=== PATIENT | female | born 1950 | race Caucasian/White ===

== ENCOUNTER 2024-12-18 14:07 | Inpatient (IN) | payer MEDICARE ==
[~2024-12-18] VITALS: Ht 162.6 cm; Wt 77.2 kg
--- NOTE | 2024-12-18 14:32 | ERN ---
ED Note History of Present Illness Stated Complaint: SHORTNESS OF BREATH Chief Complaint: Shortness of Breath Time Seen by MD: 14:21 Dictation: PATIENT IS A 74-YEAR-OLD FEMALE COMING IN VIA EMS WITH COMPLAINTS OF SHORTNESS A BREATH WITH GENERALIZED BODY ACHES AND WEAKNESS FOR THE LAST TWO WEEKS. SHE STATES [id number] DAYS AGO SHE WAS FEELING FLU-LIKE SYMPTOMS AND DIAGNOSED HERSELF WITH COVID-19 WITH A HOME TEST. SHE WENT TO A LOCAL URGENT CARE AND WAS PRESCRIBED PAXLOVID WITHOUT ANY RESPIRATORY SUPPORT AND WENT HOME. SHE STATES SHE TOOK THE MEDICATIONS DIRECTED AND WAS FEELING BETTER UNTIL THE 1ST COLD FRONT, THEN SHE STARTED GETTING SEVERE SHORTNESS A BREATH GENERALIZED BODY WEAKNESS GETTING PROGRESSIVELY WORSE. SHE DENIES ANY CHRONIC COMORBIDITIES NO HISTORY OF TOBACCO ABUSE COPD EMPHYSEMA OR CHEST PAIN. Allergies: Coded Allergies: Penicillins (Unverified Allergy, Unknown, 12/18/24) Past Medical History Past Medical History: High Cholesterol, Hypertension Additional Past Medical Hx: ANXIETY Surgical History: Appendectomy, Hysterectomy Surgical History Other: BACK SURG History: Not Applicable RN Note Reviewed/Agreed w/PFSH: Yes Review of System Dictation CONSTITUTIONAL: NEGATIVE EXCEPT FOR HPI GB W HEAD/FACE: NEGATIVE EXCEPT FOR HPI EENT: NEGATIVE EXCEPT FOR HPI RESPIRATORY: NEGATIVE EXCEPT FOR HPI SOB GASTROINTESTINAL/ABDOMINAL: NEGATIVE EXCEPT FOR HPI GENITOURINARY: NEGATIVE EXCEPT FOR HPI MUSCULOSKELETAL: NEGATIVE EXCEPT FOR HPI INTEGUMENTARY: NEGATIVE EXCEPT FOR HPI NEUROLOGICAL/PSYCH: NEGATIVE EXCEPT FOR HPI HEMATOLOGIC/LYMPHATIC: NEGATIVE EXCEPT FOR HPI ALL SYSTEMS NEGATIVE, EXCEPT NOTED ABOVE. 13 POINT REVIEW OF SYSTEMS ASSESSED AND ALL NEGATIVE EXCEPT FOR ABOVE. Initial Vital Sign VS Vital Signs Date Time Temp Pulse Resp B/P (MAP) Pulse Ox O2 Delivery O2 Flow Rate FiO2 12/18/24 14:15 98.6 96 22 104/62 95 Nasal Cannula 2.0 12/18/24 15:15 21 Physical Exam Dictation VITAL SIGNS REVIEWED GENERAL APPEARANCE: ALERT, ORIENTED X 3, MODERATE ACUTE DISTRESS, WELL DEVELOPED, NOURISHED. PATIENT IS SPEAKING IN 3-4 WORD SENTENCES HEAD AND FACE: NON-TRAUMATIC. EYES: PERRL, PINK CONJUNCTIVAS, EYELID NO TRAUMA, ANTERIOR CHAMBER WITH ARCUS SENILIS. EARS: PINNAS INTACT AND NO SIGNS OF TRAUMA OR ERYTHEMA EAR CANALS CLEAR AND NO DISCHARGE TM NO ERYTHEMA NOSE: NO DISCHARGE, NO BLEEDING. OROPHARYNX: MOUTH NORMAL, TONGUE PINK, PHARYNX CLEAR,NO ERYTHEMA, TONSILS NO EXUDATES, NO ABSCESSES NOTED, MUCOUS MEMBRANE MOIST NECK: SUPPLE, NON-TENDER, NO THYROMEGALY, NO MASSES, NO JVD, NO BRUITS BREAST:DEFERRED CHEST:NO TENDERNESS, NO CREPITUS, NO PARADOXICAL MOVEMENT, NO RETRACTIONS LUNGS:CLEAR, WELL-VENTILATED, SYMMETRIC, NO RALES, NO WHEEZING, NO RHONCHI, NO STRIDOR, PATIENT MILDLY TACHYPNEIC AND SPEAKING 3-4 WORD SENTENCES ONLY HEART: REGULAR RATE, REGULAR RHYTHM, NO MURMUR, NO GALLOPS VASCULAR: NO PERIPHERAL EDEMA, ABDOMEN: SOFT, POSITIVE BOWEL SOUNDS, NONDISTENDED, NO GUARDING, NONTENDER, NO REBOUND, NO MASSES NO HEPATOMEGALY, NO SPLENOMEGALY, NO CARCAMO'S SIGN, NO HERNIAS. RECTAL: DEFERRED GENITAL: DEFERRED NEUROLOGICAL: NORMAL SPEECH, MOTOR FUNCTION INTACT, SENSORY FUNCTION INTACT MUSCULOSKELETAL: NECK NONTENDER, FULL RANGE OF MOTION, BACK NONTENDER, FULL RANGE OF MOTION, EXTREMITIES: NONTENDER, FULL RANGE OF MOTION SKIN: COLOR PINK, DRY, NO TURGOR, NO RASH, NO LACERATIONS, NO ABRASIONS, NO CONTUSIONS. LYMPHATIC: DEFERRED Results (Laboratory/Radiology) Laboratory/Radiology Laboratory Tests Test 12/18/24 15:44 12/18/24 16:46 White Blood Count 5.7 K/uL (4.8-10.8) Red Blood Count 3.48 MIL/uL (4.00-5.50) L Hemoglobin 10.6 g/dL (12.0-16.0) L Hematocrit 32.3 % (36-48) L Mean Corpuscular Volume 92.8 fL (79-99) Mean Corpuscular Hemoglobin 30.5 pg (27.0-33.0) Mean Corpuscular Hemoglobin Concent 32.8 g/dL (32.0-36.0) Red Cell Distribution Width 12.9 % (11.0-15.5) Platelet Count 189 K/uL (130-400) Mean Platelet Volume 11.5 fL (7.5-10.5) H Immature Granulocyte % (Auto) 1.2 % (0-1) H Neutrophils (%) (Auto) 55.2 % (40.0-77.0) Lymphocytes (%) (Auto) 29.9 % (21.0-51.0) Monocytes (%) (Auto) 12.2 % (3.0-13.0) Eosinophils (%) (Auto) 1.2 % (0.0-8.0) Basophils (%) (Auto) 0.3 % (0.0-5.0) Neutrophils # (Auto) 3.2 K/uL (1.8-7.7) Lymphocytes # (Auto) 1.7 K/uL (1.0-4.8) Monocytes # (Auto) 0.7 K/uL (0.1-1.0) Eosinophils # (Auto) 0.07 K/uL (0.00-0.70) Basophils # (Auto) 0.02 K/uL (0.00-0.20) Absolute Immature Granulocyte (auto 0.07 K/uL (0-1) Nucleated Red Blood Cells 0.0 % (0.0-0.19) Sodium Level 138 mmol/L (136-145) Potassium Level 3.0 mmol/L (3.5-5.1) *L Chloride Level 102 mmol/L (101-111) Carbon Dioxide Level 26 mmol/L (21-32) Blood Urea Nitrogen 22 mg/dL (7-18) H Creatinine 0.9 mg/dL (0.5-1.0) Glomerular Filtration Rate Calc 67 mL/min (>90) Random Glucose 119 mg/dL (70-105) H Lactic Acid Level 2.7 mmol/L (0.8-2.5) H Total Calcium 8.6 mg/dL (8.5-10.1) Troponin I High Sensitivity 9 ng/L (4-50) Urine Color YELLOW (YELLOW) Urine Appearance CLOUDY (CLEAR) H Urine pH 5.5 (5.0-8.0) Urine Specific [place] 1.021 (1.001-1.031) Urine Protein 30 mg/dL (NEGATIVE) H Urine Glucose (UA) NEGATIVE mg/dL (NEGATIVE) Urine Ketones NEGATIVE mg/dL (NEGATIVE) Urine Occult Blood NEGATIVE (NEGATIVE) Urine Nitrate 1+ (NEGATIVE) H Urine Bilirubin NEGATIVE mg/dL (NEGATIVE) Urine Urobilinogen 0.2 mg/dL (0.2-1.0) Urine Leukocyte Esterase 25 Coco/uL (NEGATIVE) H Urine RBC 0-1 /HPF (0-1) Urine WBC 6-10 /HPF (0-1) H Urine Squamous Epithelial Cells FEW /HPF (0-2) Urine Bacteria MOD /HPF (None Seen) Urine Hyaline Casts 6-10 /LPF (0-1 /LPF) H PORTABLE CHEST RADIOGRAPH INDICATION: SOB/COUGH TWO WEEKS COMPARISON: None FINDINGS: Heart size is normal. Mild calcific plaque is present along the aortic arch steven. The pulmonary vascularity and dagmar appear normal. No abnormal pulmonary parenchymal opacity or consolidation identified. No significant pleural effusion noted. No pneumothorax detected. IMPRESSION: No radiographic evidence for any acute cardiopulmonary process. 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POKE WITH HER AND HER AT BEDSIDE AND SHE SAID SHE HAD A LEFT BUNDLE BRANCH BLOCK THAT WAS DIAGNOSED TWO YEARS AGO IN [place]. SHE STATES SHE HAD A THOROUGH WORKUP BY A [employer] AND HE WAS UNABLE TO FIND ANY CARDIAC DISEASE. Sinus rhythm Ventricular premature complex Left bundle branch block Please click the below link to view image of tracing. ED Course ED Course Orders Procedure Category Date Status Time Cbc With Differential LAB 12/18/24 Complete 14:28 Blood Cult KIM 12/18/24 In Process 14:28 Urinalysis Profile LAB 12/18/24 Complete 14:28 Troponin I High LAB 12/18/24 Complete Sensitivity 14:28 Lactic Acid LAB 12/18/24 Complete 14:28 Basic Metabolic Panel LAB 12/18/24 Complete 14:28 Chest 1vw RAD 12/18/24 Resulted 14:28 Oxygen By Nc/Pulse Ox CPOE 12/18/24 Transmitted 14:28 Methylprednisolone PHA 12/18/24 Complete Succ 125mg (Solu-Medr 14:30 Albuterol 0.083% PHA 12/18/24 Complete 2.5mg/3ml (Proventil 14:28 12 Lead Ekg Tracing- EKG 12/18/24 Complete Technical 14:28 0.9%Nacl 1000ml (Ns PHA 12/18/24 Complete 1000ml) 16:00 Ceftriaxone 2gm Vial PHA 12/18/24 Complete (Rocephin 2gm Inj) 16:00 Potassium Bicarb/Cit PHA 12/18/24 Complete Ac 25meq (K-Lyte Ta 16:30 Culture Urine KIM 12/18/24 In Process 16:57 Azithromycin 500mg+Ns PHA 12/18/24 In Process 250ml (Azithromyci 17:46 Admit Orders ADM 12/18/24 Transmitted 18:25 Current Medications Medications (Trade) Dose Ordered Sig/Keyla Route PRN Reason Start Time Stop Time Status Last Admin Dose Admin Albuterol Sulfate (Proventil 0.083% 2.5mg/3ml) 5 mg ONCE STAT IH 12/18/24 14:28 12/18/24 14:31 DC 12/18/24 15:35 Azithromycin 250 ml @ 250 mls/hr ONCE STAT IVPB 12/18/24 17:46 12/18/24 18:45 Ceftriaxone Sodium (Rocephin 2gm Inj) 2 gm ONCE ONCE IVPB 12/18/24 16:00 12/18/24 16:29 DC 12/18/24 16:31 Methylprednisolone Sodium Succinate (Solu-medROL 125MG) 125 mg ONCE ONCE IVP 12/18/24 14:30 12/18/24 14:31 DC 12/18/24 15:35 Potassium Bicarbonate (K-Lyte Tablet Eff 25 Meq Tablet.eff) 50 meq ONCE ONCE PO 12/18/24 16:30 12/18/24 16:31 DC 12/18/24 16:31 Sodium Chloride 1,000 ml @ 0 mls/hr ONCE ONCE IV 12/18/24 16:00 12/18/24 16:23 DC 12/18/24 16:31 Vital Signs Date Time Temp Pulse Resp B/P (MAP) Pulse Ox O2 Delivery O2 Flow Rate FiO2 12/18/24 16:41 98.2 76 24 115/48 99 Nasal Cannula* 2 28 12/18/24 15:15 98.6 96 22 164/62 95 Room Air* 0 21 12/18/24 15:03 73 28 12/18/24 14:15 98.6 96 22 104/62 95 Nasal Cannula 2.0 SEVENTEEN 50/PATIENT CONTINUES TO REQUIRE O2 DESPITE TREATMENTS WITH ALBUTEROL SOLU-MEDROL, ANTIBIOTICS. SHE WENT TO THE RESTROOM WITHOUT O2 10 MINUTES PRIOR TO ME APPROACHING THE BED AND DESATURATED DOWN IN THE HIGH 80S WITHOUT OXYGEN. PATIENT WE WILL BE ADMITTED TO THE HOSPITAL FOR POST COVID SYNDROME DYSPNEA AND OXYGEN DEPENDENT. SHE AGREES TO BE ADMITTED Eighteen 30 spoke with Antoine AGUILAR and reviewed chest x-ray EKG labs and interventions for hypokalemia and dyspnea. He agreed to admit patient. HEART Score Response (Comments) Value History: Low suspicion (0) 0 Age: > 65yrs (+2) 2 Risk Factors: 1-2 risk factors (+1) 1 Initial Troponin: Normal limit (0) 0 Total 3 Medical Decision Making MDM MDM: DIFFERENTIAL DIAGNOSIS: ACS/AMI/ELECTROLYTE IMBALANCE/DEHYDRATION/PNEUMONIA/BRONCHITIS/POST COVID SYNDROME/HYPOXEMIA RATIONALE: TESTS CONSIDERED AND ORDERED SECONDARY TO SHARED DECISION MAKING INCLUDE: LABS, ECG AND RADIOLOGY PREVIOUS OUTSIDE RECORDS REVIEWED: OLD ER VISITS. RISK OF COMPLICATION AND/OR MORBIDITY OR MORTALITY OF PATIENT MANAGEMENT: MILD MEDICATIONS-PER MEDICATION RECONCILIATION NEED FOR HOSPITALIZATION: PATIENT DOES MEET CRITERIA FOR HOSPITALIZATION. RESPIRATORY SUPPORT NEED FOR EMERGENCY MAJOR/MINOR SURGERY: NO THERE ARE NO SOCIAL CONCERNS WITH THIS PATIENT. PRESCRIPTION DRUG MANAGEMENT PRESCRIPTIONS WILL INCLUDE SYMPTOMATIC CARE PATIENT'S PRIOR EXTERNAL MEDICAL RECORDS FROM OTHER ER VISITS WERE REVIEWED BY ME INDICATED. PRIOR TESTING AND RESULTS FROM PREVIOUS VISITS WERE REVIEWED. PRIOR TESTS WERE TAKEN INTO ACCOUNT WITH MEDICAL DECISION MAKING AND RESOURCE UTILIZATION, INDEPENDENT HISTORIAN/HISTORIANS WERE USED TO OBTAIN COMPLETE MEDICAL HISTORY. I INDEPENDENTLY INTERPRETED THE TEST THAT WERE PERFORMED, RESULTS WERE REVIEWED BY ME AND CONSIDERED FINDINGS ON RADIOLOGY IF ORDERED. MEDICAL MANAGEMENT AND EXAMINATION INTERPRETATION DISCUSSIONS WERE HAD BY ME WITH OTHER QUALIFIED HEALTHCARE PROFESSIONALS INDICATED FOR THE PATIENT'S CARE. DX & DISP Disposition: Inpatient Decision to Admit Time: 17:50 Departure Impression: Primary Impression: Dyspnea on exertion Additional Impressions: Hypoxemia requiring supplemental oxygen, Hypokalemia, Hyperglycemia, Lactic acidosis, History of COVID-19 Condition: Stable Time of Disposition: 17:50 I have reviewed the case, and I agree with, Diagnosis and Plan BREANA MCCONNELL NP Dec 18, 2024 14:32
[2024-12-18 15:03] VITALS: PULSE 73; RESP 28
--- NOTE | 2024-12-18 15:06 | EKG ---
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
[2024-12-18] MEDS: ALBUTEROL 0.083% 2.5 MG/3 ML INH IH STA (15:35)
[2024-12-18] MEDS: Solu-medROL 125MG VIAL IVP ONE (15:35)
[2024-12-18 15:51] LABS: BASOPHILS # (AUTO) 0.02 K/uL (0.00-0.20); BASOPHILS % (AUTO) 0.3 % (0.0-5.0); EOSINOPHILS # (AUTO) 0.07 K/uL (0.00-0.70); EOSINOPHILS % (AUTO) 1.2 % (0.0-8.0); HEMATOCRIT 32.3 % (36-48); IMMATURE GRANULOCYTE ABSOLUTE 0.07 K/uL (0-1); LYMPHOCYTES # (AUTO) 1.7 K/uL (1.0-4.8); LYMPHOCYTES % (AUTO) 29.9 % (21.0-51.0); MEAN CORPUSCULAR HEMOGLOBIN 30.5 pg (27.0-33.0); MEAN CORPUSCULAR HGB CONC 32.8 g/dL (32.0-36.0); MEAN CORPUSCULAR VOLUME 92.8 fL (79-99); MONOCYTES # (AUTO) 0.7 K/uL (0.1-1.0); MONOCYTES % (AUTO) 12.2 % (3.0-13.0); NEUTROPHILS # (AUTO) 3.2 K/uL (1.8-7.7); NEUTROPHILS % (AUTO) 55.2 % (40.0-77.0); PLATELET COUNT (AUTO) 189 K/uL (130-400); RED BLOOD CELL COUNT(AUTO) 3.48 MIL/uL (4.00-5.50); RED CELL DISTRIBUTION WIDTH 12.9 % (11.0-15.5); WHITE BLOOD COUNT (AUTO) 5.7 K/uL (4.8-10.8)
[2024-12-18 16:12] LABS: CREATININE 0.9 mg/dL (0.5-1.0)
--- NOTE | 2024-12-18 16:19 | HMCIMG ---
PORTABLE CHEST RADIOGRAPH INDICATION: SOB/COUGH TWO WEEKS COMPARISON: None FINDINGS: Heart size is normal. Mild calcific plaque is present along the aortic arch steven. The pulmonary vascularity and dagmar appear normal. No abnormal pulmonary parenchymal opacity or consolidation identified. No significant pleural effusion noted. No pneumothorax detected. IMPRESSION: No radiographic evidence for any acute cardiopulmonary process.
--- NOTE | 2024-12-18 16:22 | NUR ---
MOVED TO ER 12
[2024-12-18] MEDS: PoTASSium BIcarbonate/CIT AC 25 MEQ TABLET.EFF PO ONE (16:31)
[2024-12-18] MEDS: CEFTRIAXONE 2GM VIAL IVPB ONE (16:31)
[2024-12-18] MEDS: 0.9%NACL 1000ML 1,000 ML IV ONE (16:31)
[2024-12-18 16:55] LABS: APPEARANCE,URINE CLOUDY (CLEAR); BILIRUBIN,URINE NEGATIVE (NEGATIVE); COLOR,URINE YELLOW (YELLOW); GLUCOSE, URINE (UA) NEGATIVE (NEGATIVE); KETONES,URINE NEGATIVE (NEGATIVE); LEUKOCYTE ESTERASE ,URINE 25 Leu/uL (NEGATIVE); NITRATE,URINE 1+ (NEGATIVE); OCCULT BLOOD,URINE NEGATIVE (NEGATIVE); PH,URINE 5.5 (5.0-8.0); PROTEIN,URINE 30 mg/dL (NEGATIVE); UROBILINOGEN,URINE 0.2 mg/dL (0.2-1.0)
[2024-12-18 16:57] LABS: ADD UA MICROSCOPIC YES
[2024-12-18 16:59] LABS: BACTERIA,URINE MOD /HPF (None Seen); MUCUS,URINE FEW LPF (None Seen); RBC,URINE 0-1 /HPF (0-1); SQUAMOUS EPITHELIAL CELL,UR FEW /HPF (0-2)
--- NOTE | 2024-12-18 18:26 | HP ---
History of Present Illness Reason for Visit: sob History of Present Illness Ms Claudio is a 74-year-old female that was seen and examined today on 12/18/2024. Patient is a good historian and personal health. Patient states that she came to the emergency department with a chief complaint of shortness of breath. Onset was one week ago. Location is to lungs. Duration is on and off. Character is described as, difficulty catching breath. There was no alleviating factors. Symptoms are aggravated with physical activity. Patient reports associated cough. Patient was diagnosed with COVID one weeks ago and took Paxlovid. Today in the emergency department potassium 3.0, lactic acid 2.7, urinalysis positive for leukocyte esterase and WBCs 6-10 per high-powered microscopy field, additionally heart rate 96 respirations 22, combine patient met clinical criteria for sepsis. For this reason emergency room physician recommended admission. Past Medical History ADDITIONAL PAST MEDICAL HISTORY: [Hypertension, hyperlipidemia, anxiety] SOCIAL HISTORY: [Patient quit smoking 15 years ago. Previously patient has smoked 1/2 packs of cigarettes daily. Patient denies alcohol use. Patient denies drug use. Patient lives with the Fabricio Claudio. Patient is typically independent of her ADLs. Patient denies difficulty paying her bills. Patient has good access to health care through her insurance. 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 Dyspnea, Edema, Lt Headedness, Other Gastrointestinal: No: Nausea, Vomiting, Abdominal Pain, Diarrhea, Constipation, Melena, Hematochezia, Other Genitourinary: No Dysuria, No Frequency, No Incontinence, No Hematuria, No Retention, No Other Musculoskeletal: No: other, neck pain, shoulder pain, arm pain, back pain, hand pain, leg pain, foot pain Skin: No Urticaria, No Rash, No Other Neurological: No: Weakness, Numbness, Incoordination, Change in speech, Confusion, Seizures, Other Allergies: Coded Allergies: Penicillins (Unverified Allergy, Unknown, 12/18/24) Scheduled Escitalopram Oxalate (Escitalopram Oxalate), 1 TAB PO DAILY, (Reported) Losartan Potassium (Losartan Potassium), 1 TAB PO HS, (Reported) Multivit-Min/Iron/FA/Vit K/Lut (Centrum Silver Women Tablet), 1 TAB PO DAILY, (Reported) Simvastatin (Simvastatin), 1 TAB PO HS, (Reported) [vitamin d3], 1 CAP PO DAILY, (Reported) Exam Vital Signs Vital Signs Date Time Temp Pulse Resp B/P (MAP) Pulse Ox O2 Delivery O2 Flow Rate FiO2 12/18/24 16:41 98.2 76 24 115/48 99 Nasal Cannula* 2 28 General Appearance: Alert, Oriented X3, Cooperative, mild distress HEENT: Atraumatic, EOMI Respiratory: Clear to auscultation, Normal air movement, NL respiratory effort Cardiovascular: Regular rate, Regular rhythm, Normal S1, Normal S2 Abdominal: Normal bowel sounds, Soft, No tenderness Extremities: No edema Skin: No significant lesion Neuro: Normal speech, Strength at 5/5 X4 ext, Cranial nerves 3-12 NL Psych/Mental Status: Mental status NL, Mood NL, Thoughts/Content NL Assessment/Plan ASSESSMENT: [ Sepsis, POA Urinary tract infection, POA Hypokalemia, POA Shortness of breath, POA Hypertension Hyperlipidemia] PLAN: [ Admit patient to medical floor as inpatient status. Place patient on telemetry monitoring. Fluid resuscitation with lactated Ringer's 30 mL/kg Empiric antibiotic therapy with Levaquin 500 mg IV daily. Check procalcitonin, follow up with the results. Repeat lactic acid in a.m.. Check blood culture, follow up with the results. Check urine culture, follow up with the results. Replace potassium per hospital protocol. DuoNebs every 6 hours. Patient received Solu-Medrol 125 mg IV times 1. Continue Solu-Medrol at 40 mg IV every 8 hours. As needed analgesia with morphine. Consider resuming home medications once they are reconciled. For now, Hydralazine 10 mg IV every 4 hours for systolic blood pressure greater than 160 mmHg GI prophylaxis, famotidine 20 mg by mouth once daily. DVT prophylaxis, Lovenox. ADVANCED CARE PLANNING 1. Which of the following were discussed? Hospice Care - Yes Therapeutic options - Yes Advance Directives - Yes-patient states he does not have any advance directives in place at this time, however her can make decisions for her if she becomes unable. Other discussions - patient wishes to remain a full code at this time 2. Discussed with who? Patient 3. Voluntary nature of this service was explained to the patient? Yes 4. Amount of time spent - __ 16 minutes 5. Reviewed by Physician? (if this service was performed by NPP) Yes This document was generated in part using voice recognition software, occasional wrong word or sound alike substitutions may have occurred due to the inherent limitations of voice recognition software. Read the chart carefully and recognize using context, where the substitutions have occurred. Although every effort was made to edit the content, live in housekeeper and typing errors may occur ATTESTATION BY PHYSICIAN I have seen and examined the patient. I reviewed the documentation, medical decision making, and treatment plan as noted by the mid-level provider above. I agree with the findings and plan of care. [facility] Dec 18, 2024 18:26
[2024-12-18] MEDS: AZITHROMYCIN 500MG+NS 250ML 250 ML IVPB STA (18:39)
[2024-12-18] MEDS ORDERED: PoTASSium chl 10% ELIXIR 20MEQ 20 MEQ/15 ML UDCUP PO PRN (19:30)
[2024-12-18] MEDS ORDERED: morPHINE 4 MG SYG IVP PRN (19:30)
[2024-12-18] MEDS ORDERED: ondanSETRON 4MG INJ IV PRN (19:30)
[2024-12-18] MEDS ORDERED: hydrALAZine 20MG/ML VIAL IV PRN (19:30)
[2024-12-18] MEDS ORDERED: PoTASSium chloRIDE 20MEQ/100ML 100 ML IV PRN (19:30)
[2024-12-18] MEDS: LACTATED RINGERS 1000ML 1,641 ML IV ONE (20:07)
[2024-12-18 20:56] LABS: CREATININE 0.7 mg/dL (0.5-1.0); POTASSIUM 3.7 mmol/L (3.5-5.1)
[2024-12-18 21:50] VITALS: O2SAT 98
--- NOTE | 2024-12-18 21:50 | NUR ---
arrival patient arrived to room 428 at 2150. plan of care discussed with her and she verbalized understanding. patient calls for assistance to use the bedside commode. she has no wounds. home medications were entered. she has no pain. she has shortness of breath and weakness when she is ambulatory. she is on 2 liters of oxygen via nasal cannula. call light within reach, bed alarm on, 2 side rails up. will continue to monitor patient.
[2024-12-18 21:55] VITALS: BP 137/76; PULSE 67; RESP 20; TEMP 98
[2024-12-18 21:59] LABS: RAPID GROUP A STREP negative (NEGATIVE); SARS-CoV-2, RNA, NAAT NEGATIVE SARS CoV-2 (NEGATIVE)
[2024-12-18 22:09] LABS: INFLUENZA TYPE A Negative For Type A (NEGATIVE); INFLUENZA TYPE B Negative For Type B (NEGATIVE)
[2024-12-18] MEDS ORDERED: MULT-1250 PO (22:09)
[2024-12-18] MEDS ORDERED: vitamin d3 PO (22:09)
[2024-12-18] MEDS ORDERED: LOSA100T59 PO (22:09)
[2024-12-18] MEDS ORDERED: ESCI20TA38 PO (22:09)
[2024-12-18] MEDS ORDERED: SIMV-46 PO (22:09)
[2024-12-18] MEDS: Solu-medROL 40MG VIAL IVP SCH (22:29)
[2024-12-18] MEDS: PoTASSium chloRIDE 20MEQ ER 20 MEQ ERTAB PO PRN (22:29)
[2024-12-18] MEDS: Solu-medROL 40MG VIAL ONE (22:29)
[2024-12-19] VITALS (16 sets, daily range): BP systolic 115–155; BP diastolic 53–78; PULSE 45–75; RESP 18–52; TEMP 97.6–98.3; O2SAT 97
[2024-12-19] MEDS: IpraTROPium/alBUTERol SULFATE 3 ML SOLUTION IH SCH (01:11)
[2024-12-19 03:49] LABS: BASOPHILS # (AUTO) 0.01 K/uL (0.00-0.20); BASOPHILS % (AUTO) 0.2 % (0.0-5.0); IMMATURE GRANULOCYTE ABSOLUTE 0.07 K/uL (0-1); LYMPHOCYTES # (AUTO) 0.7 K/uL (1.0-4.8); LYMPHOCYTES % (AUTO) 13.8 % (21.0-51.0); MEAN CORPUSCULAR HEMOGLOBIN 30.2 pg (27.0-33.0); MEAN CORPUSCULAR HGB CONC 32.7 g/dL (32.0-36.0); MEAN CORPUSCULAR VOLUME 92.3 fL (79-99); MONOCYTES # (AUTO) 0.1 K/uL (0.1-1.0); MONOCYTES % (AUTO) 2.1 % (3.0-13.0); NEUTROPHILS # (AUTO) 4.2 K/uL (1.8-7.7); NEUTROPHILS % (AUTO) 82.5 % (40.0-77.0); PLATELET COUNT (AUTO) 175 K/uL (130-400); RED BLOOD CELL COUNT(AUTO) 3.25 MIL/uL (4.00-5.50); RED CELL DISTRIBUTION WIDTH 12.8 % (11.0-15.5); WHITE BLOOD COUNT (AUTO) 5.1 K/uL (4.8-10.8)
[2024-12-19 04:21] LABS: CREATININE 0.7 mg/dL (0.5-1.0); PHOSPHORUS 3.3 mg/dL (2.5-4.9); POTASSIUM 4.2 mmol/L (3.5-5.1)
[2024-12-19] MEDS: acetaMINOPHEN 325 MG TAB PO PRN (04:39)
[2024-12-19] MEDS: FAMOTIDINE 20MG TAB PO SCH (08:14)
[2024-12-19] MEDS: ENOXAPARIN SODIUM 40 MG/0.4 ML SYRINGE SQ SCH (08:15)
[2024-12-19] MEDS: 0.9%NACL 1000ML 1,000 ML IV SCH (11:31)
[2024-12-19] MEDS ORDERED: IOHEXOL 350 MG/ML 100ML INFUS..BTL IV ONE (16:49)
--- NOTE | 2024-12-19 17:28 | HMCIMG ---
CT CHEST W/CONTRAST HISTORY: Acute respiratory failure COMPARISON: None TECHNIQUE: Multiple sequential axial images of the chest were obtained from the thoracic inlet through upper abdomen. Patient was not given contrast through intravenous route. FINDINGS: There are right lower lobe pulmonary infiltrates. Mild interstitial fibrotic changes are seen. No pleural effusion or pericardial effusion is seen. There is no evidence of pneumothorax. There are normal size mediastinal and hilar lymph nodes. The heart is not enlarged. Degenerative changes of the thoracolumbar spine are present. There is no evidence of adrenal nodule. IMPRESSION: 1. Right lower lobe pulmonary infiltrates. Mild interstitial fibrotic changes. CT was performed with one or more following dose reduction techniques: automated exposure control, adjustment of the mA and kv according to patient's size, or use of a iterative reconstruction technique.
--- NOTE | 2024-12-19 17:56 | PN ---
[facility] PROGRESS NOTE Date of Service: Dec 19, 2024 Time of Service: 11:00 SUBJECTIVE: The patient is a 74-year-old female with a medical history of hypertension, hyperlipidemia, and anxiety disorder presented to the emergency department with chief complaints of shortness of breath that had been ongoing for one week. The patient's had sustained femur and hand fractures one month prior, and she expressed concerns about being exposed to a sick environment during his rehabilitation visits. Additionally, one week ago, while taking a shower, she experienced a sudden onset of shortness of breath. She performed a home COVID test, which returned positive, and subsequently completed a course of Paxlovid. However, her shortness of breath did not improve, leading her to seek care in the emergency department. Upon presentation, her heart rate was 96 beats per minute, and her respiratory rate was 22 breaths per minute, meeting the SIRS criteria. She was also noted to be in respiratory distress and was initiated on supplemental oxygen via nasal cannula, along with IV steroids and inhalers. Laboratory results showed potassium levels at 3, lactic acid at 2.7, and urinalysis revealed cloudy appearance, 1+ nitrate, small leukocyte esterase, and hyaline casts. She met the criteria for sepsis and was admitted for the management of sepsis secondary to a urinary tract infection and acute respiratory failure. 12/19/2024: The patient was examined at bedside and appears to be in some distress. She is currently on 2.0 L of nasal cannula and has a pulse rate in the late 50s; otherwise, she is hemodynamically stable. She is complaining of a cough that is brownish in color as well as post-nasal drip. She reports an improvement in symptoms with the use of nebulizers and supplemental oxygen. She denies experiencing any chest pain, headaches, body aches, fever, or chills. Repeat labs indicated that potassium levels have improved, and lactic acid levels decreased from 2.7 to 1.3. The urine culture showed >100,000 CFU and the presence of gram-negative rods. We will continue with breathing support, intravenous steroids, nebulizers, and Levofloxacin. We will also initiate IV fluids. Further assessment and a detailed plan are discussed below. REVIEW OF SYSTEMS CONSTITUTIONAL: Denies fevers, chills, or night sweats. No unintentional weight loss reported. NEUROLOGICAL: Denies headache, amaurosis fugax, motor weakness, sensory deficit, vertigo/spinning sensation, gait abnormalities, or tremors. ENT: No hearing loss, otalgia, otorrhea, rhinitis, rhinorrhea, hoarseness, or sore throat. CARDIOVASCULAR: Denies any exertional angina, dyspnea on exertion, orthopnea, paroxysmal nocturnal dyspnea, palpitations, life-threatening arrhythmias, claudication. PULMONARY: Denies any shortness of breath, c/o brownish cough, no hemoptysis, pleuritic chest pain. SLEEP: Denies morning headaches, daytime somnolence or napping. Denies difficulty falling asleep, staying asleep, waking from sleep. Denies knowledge of snoring. GASTROINTESTINAL: Denies any type of dysphagia to either liquids or solids. Denies nausea, vomiting, pyrosis, early satiety, abdominal pain, diarrhea, constipation, or changes in stool consistency or caliber. Denies coffee-ground emesis, hematemesis, hematochezia, or melanotic stools. GENITOURINARY: Denies frequency, urgency, nocturia, hematuria or incontinence (Storage/Irritative symptoms.) Low urinary stream, straining to void, urinary intermittency or hesitancy, splitting of the voiding stream, terminal dribbling. ENDOCRINOLOGIC: Denies polyuria, polydipsia, polyphagia or heat/cold intolerances. HEMATOLOGIC: Denies thrombophilia/previous clots, or coagulopathy/bleeding disorders. ONCOLOGIC: Denies personal history of malignancy. DERMATOLOGIC: Denies rashes or pruritus. PSYCHIATRIC: Denies any suicidal or homicidal ideation. Denies hallucinations. PHYSICAL EXAM GENERAL APPEARANCE: The patient is awake, alert, and oriented, in no acute cardiopulmonary distress. NEUROLOGICAL: Cranial nerves II-XII grossly intact. Motor is 5/5 in bilateral upper and lower extremities proximal to distal. No sensory deficits. HEENT: Face is symmetric. Pupils are equal and reactive. Extraocular movements are intact. NECK: Supple. No JVD. No thyromegaly. No submental, submandibular, pre- /postauricular, occipital or supraclavicular lymphadenopathy. CHEST: Normal chest expansion. No Telemetry. LUNGS: Absence of any rales, rhonchi or any wheezing. CARDIOVASCULAR: Regular. S1 and S2 normal. No appreciable rubs, murmurs or gallops. ABDOMEN: Soft, nontender, and nondistended. There is no rebound, voluntary guarding, or rigidity. : Deferred. No Scales. EXTREMITIES: Non-edematous and not cyanotic. No clubbing. Good capillary refill. SKIN: No skin breakdown. Vital Signs (last 8hr) Date Time Temp Pulse Resp B/P (MAP) Pulse Ox O2 Delivery O2 Flow Rate FiO2 12/19/24 16:19 97.9 57 18 115/55 99 Nonrebreathing Mask 12/19/24 11:26 97.5 48 20 136/78 98 Nasal Cannula 2.0 12/19/24 11:15 N/A Room Air 21 12/19/24 11:12 53 22 12/19/24 11:06 75 LABS: Laboratory: Test 12/19/24 15:36 12/19/24 11:14 12/19/24 07:43 12/19/24 03:12 Range/Units Whole Blood Glucose 165 H 70-110 MG/DL Bedside Glucose Comment Notified Nurse Lactic Acid Level 1.3 0.8-2.5 mmol/L White Blood Count 5.1 4.8-10.8 K/uL Red Blood Count 3.25 L 4.00-5.50 MIL/uL Hemoglobin 9.8 L 12.0-16.0 g/dL Hematocrit 30.0 L 36-48 % Mean Corpuscular Volume 92.3 79-99 fL Mean Corpuscular Hemoglobin 30.2 27.0-33.0 pg Mean Corpuscular Hemoglobin Concent 32.7 32.0-36.0 g/dL Red Cell Distribution Width 12.8 11.0-15.5 % Platelet Count 175 130-400 K/uL Mean Platelet Volume 12.3 H 7.5-10.5 fL Immature Granulocyte % (Auto) 1.4 H 0-1 % Neutrophils (%) (Auto) 82.5 H 40.0-77.0 % Lymphocytes (%) (Auto) 13.8 L 21.0-51.0 % Monocytes (%) (Auto) 2.1 L 3.0-13.0 % Eosinophils (%) (Auto) 0.0 0.0-8.0 % Basophils (%) (Auto) 0.2 0.0-5.0 % Neutrophils # (Auto) 4.2 1.8-7.7 K/uL Lymphocytes # (Auto) 0.7 L 1.0-4.8 K/uL Monocytes # (Auto) 0.1 0.1-1.0 K/uL Eosinophils # (Auto) 0.00 0.00-0.70 K/uL Basophils # (Auto) 0.01 0.00-0.20 K/uL Absolute Immature Granulocyte (auto 0.07 0-1 K/uL Nucleated Red Blood Cells 0.0 0.0-0.19 % Sodium Level 140 136-145 mmol/L Potassium Level 4.2 3.5-5.1 mmol/L Chloride Level 106 101-111 mmol/L Carbon Dioxide Level 24 21-32 mmol/L Blood Urea Nitrogen 14 7-18 mg/dL Creatinine 0.7 0.5-1.0 mg/dL Glomerular Filtration Rate Calc 91 >90 mL/min Random Glucose 178 H 70-105 mg/dL Total Calcium 8.7 8.5-10.1 mg/dL Phosphorus Level 3.3 2.5-4.9 mg/dL Magnesium Level 2.00 1.80-2.40 mg/dL Test 12/18/24 21:37 12/18/24 19:56 12/18/24 16:46 12/18/24 15:44 Range/Units Influenza Type A Antigen Negative For Type A NEGATIVE Influenza Type B Antigen Negative For Type B NEGATIVE SARS-CoV-2, RNA, NAAT NEGATIVE SARS CoV-2 NEGATIVE Group A Streptococcus Rapid negative NEGATIVE B-Type Natriuretic Peptide 74 0-100 pg/mL Procalcitonin < 0.05 L 0.05-0.5 ng/mL Urine Color YELLOW YELLOW Urine Appearance CLOUDY H CLEAR Urine pH 5.5 5.0-8.0 Urine Specific [place] 1.021 1.001-1.031 Urine Protein 30 H NEGATIVE mg/dL Urine Glucose (UA) NEGATIVE NEGATIVE mg/dL Urine Ketones NEGATIVE NEGATIVE mg/dL Urine Occult Blood NEGATIVE NEGATIVE Urine Nitrate 1+ H NEGATIVE Urine Bilirubin NEGATIVE NEGATIVE mg/dL Urine Urobilinogen 0.2 0.2-1.0 mg/dL Urine Leukocyte Esterase 25 H NEGATIVE Coco/uL Urine RBC 0-1 0-1 /HPF Urine WBC 6-10 H 0-1 /HPF Urine Squamous Epithelial Cells FEW 0-2 /HPF Urine Bacteria MOD None Seen /HPF Urine Hyaline Casts 6-10 H 0-1 /LPF /LPF Troponin I High Sensitivity 9 4-50 ng/L Current Medications Medications (Trade) Dose Ordered Sig/Keyla Route PRN Reason Start Time Stop Time Status Last Admin Dose Admin Acetaminophen (TYLenol 325MG TAB) 650 mg Q6H PRN PO TEMPERATURE GREATER THAN 101.5 12/18/24 19:30 01/17/25 19:29 12/19/24 04:39 650 MG Albuterol (DUOneb) 1 UDVIAL [id number] IH 12/19/24 00:00 01/18/25 00:00 12/19/24 11:12 1 UDVIAL Albuterol Sulfate (Proventil 0.083% 2.5mg/3ml) 5 mg ONCE STAT IH 12/18/24 14:28 12/18/24 14:31 DC 12/18/24 15:35 5 MG Azithromycin 250 ml @ 250 mls/hr ONCE STAT IVPB 12/18/24 17:46 12/18/24 18:45 DC 12/18/24 18:39 250 MLS/HR Enoxaparin Sodium (Lovenox) 40 mg DAILY SQ 12/19/24 09:00 01/18/25 08:59 Famotidine (Pepcid 20mg Tab) 20 mg DAILY PO 12/19/24 09:00 01/18/25 08:59 12/19/24 08:14 20 MG Hydralazine HCl (APRESOLine 20MG INJ) 10 mg Q6H PRN IV For:SBP above 160;DBP above 90 12/18/24 19:30 01/17/25 19:29 Levofloxacin/ Dextrose 100 ml @ 100 mls/hr Q24H IV 12/18/24 19:30 12/28/24 19:29 12/18/24 20:07 100 MLS/HR Methylprednisolone Sodium Succinate (Solu-medROL 40MG) 40 mg Q8H IVP 12/18/24 23:30 01/17/25 23:29 12/19/24 16:01 40 MG Morphine Sulfate (morPHINE 2MG SYG) 2 mg Q4H PRN IVP SEVERE PAIN (7-10) 12/19/24 00:30 12/26/24 00:29 Morphine Sulfate (morPHINE 4MG SYG) 2 mg Q4H PRN IVP SEVERE PAIN (7-10) 12/18/24 19:30 12/19/24 00:22 DC Ondansetron HCl (zoFRAN 4MG INJ) 4 mg Q6H PRN IV NAUSEA/VOMITING 12/18/24 19:30 01/17/25 19:29 Potassium Chloride 100 ml @ 100 mls/hr AD PRN IV POTASSIUM PROTOCOL 12/18/24 19:30 01/17/25 19:29 Potassium Chloride (K-Dur/Klor-Con 20meq) 20 meq AD PRN PO POTASSIUM PROTOCOL 12/18/24 19:30 01/17/25 19:29 12/18/24 22:29 20 MEQ Potassium Chloride (KCl 10% Elixir 20meq/15ml) 20 meq AD PRN PO POTASSIUM PROTOCOL 12/18/24 19:30 01/17/25 19:29 Sodium Chloride 1,000 ml @ 100 mls/hr Q10H IV 12/19/24 09:30 01/18/25 09:29 12/19/24 11:31 100 MLS/HR DIAGNOSTICS / RADIOLOGY: [place] [address] IMAGING REPORT Signed PATIENT: ROSI COTTON MR#: [id number] : 1950 SEX: F AGE: 74 LOCATION: [facility] ORDER 1430 STATUS: [facility] REPORT#: [id number] SERVICE 1428 REASON: SOB/COUGH TWO WEEKS ORDERING PHYSICIAN: BREANA MCCONNELL NP PROCEDURE: CXR1VW - CHEST 1VW PORTABLE CHEST RADIOGRAPH INDICATION: SOB/COUGH TWO WEEKS COMPARISON: None FINDINGS: Heart size is normal. Mild calcific plaque is present along the aortic arch steven. The pulmonary vascularity and dagmar appear normal. No abnormal pulmonary parenchymal opacity or consolidation identified. No significant pleural effusion noted. No pneumothorax detected. IMPRESSION: No radiographic evidence for any acute cardiopulmonary process. DICTATED BY: EDDA IGNACIO MD DATE: 12/18/241616 ELECTRONICALLY SIGNED BY: EDDA IGNACIO MD DATE: 12/18/241618 RUN DATE: 12/19/24 [facility] [address] 1 RUN TIME: [id number] [address], [place] [address] Department of Laboratories CLIA # [id number] Analytical Scientist: Jareth Ventura DO Specimen Report PATIENT: ROSI COTTON ACCT: [id number] LOC: [facility] U: [id number] AGE/SX: 74/F ROOM: [facility] RE12/18/[address]: LALI FARRAR MD : 1950 BED: 1 DIS: STATUS: ADM IN TLOC: SPEC: [id number] ABY: 12/18/24 STATUS: RES REQ: [id number] RECD: 12/19/[address] [facility] [address]: BREANA MCCONNELL NP SOURCE: [employer] [employer] ENTR: 12/19/[address] [facility] [address]: SELF,REFERRAL SPDESC: CLEAN CAT JOEY MELGAR MD ORDERED: AERO ID & SENS Procedure Result Akua Date-Time AEROBIC ID & SENSITIVITIES Preliminary 12/19/24-1152 [facility] COLONY DESCRIPTION: DAY 1: COLONY COUNT: >100,000 CFU/ML GRAM NEGATIVE RODS IDENTIFICATION AND SENSITIVITY TO FOLLOW Test(s) performed by: [facility] [address] [place] [address] @ [facility] Test Performed at: [facility] [address], [place], [place] Medical Vice President Research: Aubrey Templeton D.O. ASSESSMENT: Sepsis, POA Urinary tract infection, Gram negative rods, POA Hypokalemia, POA Acute respiratory failure requiring supplemental oxygen, POA Anemia Elevated Lactic acid, improving Hypertension Hyperlipidemia PLAN: The patient remains admitted on the medical surgical floor. Sepsis, POA Urinary tract infection, Gram negative rods, POA * Continue with Levofloxacin 500 mg IV Q 24 daily. * Continue with Maintenance fluids 0.9% Nacl 100 cc/hour. * Follow up with the blood culture results when available. * Follow up with the urine culture results when available. Acute respiratory failure requiring supplemental oxygen, POA * Patient received Solu-Medrol 125 mg IV times 1, Continue Solu-Medrol at 40 mg IV every 8 hours. * Supplemental oxygen as needed * DuoNebs every 6 hours. * Robitussin 10 ml Q6 PRN for cough * CT Chest with contrast and Echocardiogram was ordered to further evaluate the cause of shortness of breath. Follow up when the results are available. Replace potassium per hospital protocol. As needed analgesia with morphine. Home medications were reconciled and resumed. Hydralazine 10 mg IV every 4 hours for systolic blood pressure greater than 160 mmHg PT tomorrow GI prophylaxis, famotidine 20 mg by mouth once daily. DVT prophylaxis, Lovenox. AM Labs: CBC, BMP Further orders per hospitalization course. ATTESTATION BY PHYSICIAN I have seen and examined the patient. I reviewed the documentation, medical decision making, and treatment plan as noted by the resident provider above. I agree with the findings and plan of care. Ranjan Bowden MD, MANALI MD Dec 19, 2024 17:56
[2024-12-19] MEDS ORDERED: guaiFENesin-DM 200/20MG 10ML PO PRN (18:00)
[2024-12-19] MEDS ORDERED: levoFLOXacin 750 MG/D5W 150ML BAG IV SCH ×2 (18:00)
[2024-12-19] MEDS: levoFLOXacin 500 MG TABLET PO SCH (22:00)
[2024-12-20] VITALS (12 sets, daily range): BP systolic 114–161; BP diastolic 47–75; PULSE 43–81; RESP 18–20; TEMP 97.7–98; O2SAT 95–98
--- NOTE | 2024-12-20 03:16 | NUR ---
nursing pm note patient alert and oriented times 4. plan of care discussed with her and she verbalized understanding. Patient is ambulatory independently to the restroom. She has no pain tonight. I called Antoine Sharma, devops architect, for patient's levaquin IV. The pharmacist, steve said that the levaquin iv is on back order. Antoine ordered levaquin po. I also asked Antoine sharma for the home medications. He ordered to resume home meds except vitamins. The patient has been watching television calmly without respiratory distress, nausea, or vomiting. call light within reach, bed alarm on, 2 side rails up. will continue to monitor patient.
[2024-12-20] MEDS: citaLOPram 20 MG TABLET PO ONE (04:32)
[2024-12-20] MEDS: citaLOPram 20 MG TABLET PO SCH (04:32)
[2024-12-20 06:24] LABS: BASOPHILS # (AUTO) 0.03 K/uL (0.00-0.20); BASOPHILS % (AUTO) 0.2 % (0.0-5.0); HEMATOCRIT 32.2 % (36-48); IMMATURE GRANULOCYTE ABSOLUTE 0.25 K/uL (0-1); LYMPHOCYTES # (AUTO) 1.3 K/uL (1.0-4.8); LYMPHOCYTES % (AUTO) 8.1 % (21.0-51.0); MEAN CORPUSCULAR HGB CONC 31.1 g/dL (32.0-36.0); MEAN CORPUSCULAR VOLUME 96.7 fL (79-99); MONOCYTES # (AUTO) 0.4 K/uL (0.1-1.0); MONOCYTES % (AUTO) 2.7 % (3.0-13.0); NEUTROPHILS # (AUTO) 13.9 K/uL (1.8-7.7); NEUTROPHILS % (AUTO) 87.4 % (40.0-77.0); PLATELET COUNT (AUTO) 216 K/uL (130-400); RED BLOOD CELL COUNT(AUTO) 3.33 MIL/uL (4.00-5.50); RED CELL DISTRIBUTION WIDTH 13.2 % (11.0-15.5); WHITE BLOOD COUNT (AUTO) 15.9 K/uL (4.8-10.8)
[2024-12-20] MEDS: morPHINE 2 MG SYG IVP PRN (06:27)
--- NOTE | 2024-12-20 06:34 | NUR ---
abdominal pain patient was voiding and started having severe right abdominal pain. I took her back to bed, assessed her, and administered morphine. I paged hospitalist and pending call back for orders.
[2024-12-20 06:43] LABS: CREATININE 0.6 mg/dL (0.5-1.0); POTASSIUM 3.9 mmol/L (3.5-5.1)
--- NOTE | 2024-12-20 06:56 | NUR ---
abd pain dr. young called back. she will check up on the patient at 08:00 am
--- NOTE | 2024-12-20 08:09 | NUR ---
TELE SPOKE WITH ACCOUNT SOLUTIONS ANALYST ALEX, PATIENT IS CURRENTLY SINUS HARRY 39-42. CHECKED ON PATIENT, PATIENT IS FEELING DIZZY. PRIMARY TEAM, DR IGNACIO, MADE AWARE. NEW ORDERS FOR EKG. PLAN OF CARE ON ONGOING.
--- NOTE | 2024-12-20 08:15 | NUR ---
ABD PAIN ABD PAIN PERSISTS, PAGED DR IGNACIO, NEW ORDERS FOR STAT CT ABD/PELVIS. PLAN OF CARE ON GOING.
--- NOTE | 2024-12-20 09:20 | EKG ---
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
--- NOTE | 2024-12-20 10:11 | HMCIMG ---
CT ABDOMEN/PELVIS W/O CONTRAST HISTORY: Abdominal pain COMPARISON: None TECHNIQUE: Multiple sequential axial images of the abdomen and pelvis were obtained from the dome of the diaphragm through symphysis pubis. Patient was not given contrast through intravenous route. Oral contrast was not given. FINDINGS: No pleural effusion is seen bilaterally. There is no evidence of parenchymal disease or pulmonary nodule of the visualized lower lungs. Degenerative changes of the thoracolumbar spine are present. The heart is not enlarged. Gallstones and sludge material are seen in the gallbladder. There is large right renal cyst measuring 8.4 x 7.4 cm. There is diverticulosis. The liver, spleen, adrenal glands and pancreas are unremarkable. There is no evidence of hydronephrosis bilaterally. No evidence of renal stone is seen. Fecal material is seen in the colon. There are normal size retroperitoneal and mesenteric lymph nodes. No ascites is seen. Atherosclerotic changes are present. Appendix and uterus are not visualized. Pelvic sidewalls are symmetric bilaterally. Bladder is poorly distended. Contrast is seen in the urinary collecting system. IMPRESSION: 1. Diverticulosis. Fecal material is seen in the colon. CT was performed with one or more following dose reduction techniques: automated exposure control, adjustment of the mA and kv according to patient's size, or use of a iterative reconstruction technique.
[2024-12-20] MEDS ORDERED: BisaCODYL 5 MG TABLET.DR PO PRN (10:30)
--- NOTE | 2024-12-20 10:36 | PN ---
[facility] PROGRESS NOTE Date of Service: Dec 20, 2024 Time of Service: 10:36 SUBJECTIVE: The patient is a 74-year-old female with a medical history of hypertension, hyperlipidemia, and anxiety disorder presented to the emergency department with chief complaints of shortness of breath that had been ongoing for one week. The patient's had sustained femur and hand fractures one month prior, and she expressed concerns about being exposed to a sick environment during his rehabilitation visits. Additionally, one week ago, while taking a shower, she experienced a sudden onset of shortness of breath. She performed a home COVID test, which returned positive, and subsequently completed a course of Paxlovid. However, her shortness of breath did not improve, leading her to seek care in the emergency department. Upon presentation, her heart rate was 96 beats per minute, and her respiratory rate was 22 breaths per minute, meeting the SIRS criteria. She was also noted to be in respiratory distress and was initiated on supplemental oxygen via nasal cannula, along with IV steroids and inhalers. Laboratory results showed potassium levels at 3, lactic acid at 2.7, and urinalysis revealed cloudy appearance, 1+ nitrate, small leukocyte esterase, and hyaline casts. She met the criteria for sepsis and was admitted for the management of sepsis secondary to a urinary tract infection and acute respiratory failure. 12/19/2024: The patient was examined at bedside and appears to be in some distress. She is currently on 2.0 L of nasal cannula and has a pulse rate in the late 50s; otherwise, she is hemodynamically stable. She is complaining of a cough that is brownish in color as well as post-nasal drip. She reports an improvement in symptoms with the use of nebulizers and supplemental oxygen. She denies experiencing any chest pain, headaches, body aches, fever, or chills. Repeat labs indicated that potassium levels have improved, and lactic acid levels decreased from 2.7 to 1.3. The urine culture showed >100,000 CFU and the presence of gram-negative rods. We will continue with breathing support, intravenous steroids, nebulizers, and Levofloxacin. We will also initiate IV fluids. Further assessment and a detailed plan are discussed below. 12/20/2024: The patient was examined at bedside and appears to be in some distress. The patient reported of right upper quadrant abdominal pain at 6:00 AM,10/10 in severity, sharp shooting type, radiating to shoulder and neck. She also went to restroom and felt dizzy and had to call the nurse for assistance. During that time, telemetry reported the patient had sinus bradycardia and heart rates were in 40-50s. Upon asking, the patient has had a h/o bradycardia, LBBB and PVC diagnosed during Holter monitoring 2 years ago. However, she said she has never felt this abdominal pain before. She also has been coughing more and says it could be because of coughing more and the rib also hurts. CT abdomen pelvis was ordered, which showed Diverticulosis, gallstones with sludge material, large right renal cyst measuring 8.4 x 7.4 cm. Otherwise her vitals are stable Labs: WBC went up to 15.9 from 5.1 (Possibly secondary to IV steroids). The urine culture showed >100,000 CFU and the presence of gram-negative rods, Pa nsensitive ECOLI. We will taper the steroids today. Due to episodes of bradycardia possibly secondary to vasovagal vs medication induced, we will DC Levofloxacin and start with Bactrim. Continue close monitoring under telemetry. Further assessment and a detailed plan are discussed below. REVIEW OF SYSTEMS CONSTITUTIONAL: Denies fevers, chills, or night sweats. No unintentional weight loss reported. NEUROLOGICAL: Denies headache, amaurosis fugax, motor weakness, sensory deficit, vertigo/spinning sensation, gait abnormalities, or tremors. ENT: No hearing loss, otalgia, otorrhea, rhinitis, rhinorrhea, hoarseness, or sore throat. CARDIOVASCULAR: Denies any exertional angina, dyspnea on exertion, orthopnea, paroxysmal nocturnal dyspnea, palpitations, life-threatening arrhythmias, claudication. PULMONARY: Denies any shortness of breath, c/o brownish cough, no hemoptysis, pleuritic chest pain. SLEEP: Denies morning headaches, daytime somnolence or napping. Denies difficulty falling asleep, staying asleep, waking from sleep. Denies knowledge of snoring. GASTROINTESTINAL: Denies any type of dysphagia to either liquids or solids. Denies nausea, vomiting, pyrosis, early satiety, abdominal pain, diarrhea, constipation, or changes in stool consistency or caliber. Denies coffee-ground emesis, hematemesis, hematochezia, or melanotic stools. GENITOURINARY: Denies frequency, urgency, nocturia, hematuria or incontinence (Storage/Irritative symptoms.) Low urinary stream, straining to void, urinary intermittency or hesitancy, splitting of the voiding stream, terminal dribbling. ENDOCRINOLOGIC: Denies polyuria, polydipsia, polyphagia or heat/cold intolerances. HEMATOLOGIC: Denies thrombophilia/previous clots, or coagulopathy/bleeding disorders. ONCOLOGIC: Denies personal history of malignancy. DERMATOLOGIC: Denies rashes or pruritus. PSYCHIATRIC: Denies any suicidal or homicidal ideation. Denies hallucinations. PHYSICAL EXAM GENERAL APPEARANCE: The patient is awake, alert, and oriented, in no acute cardiopulmonary distress. NEUROLOGICAL: Cranial nerves II-XII grossly intact. Motor is 5/5 in bilateral upper and lower extremities proximal to distal. No sensory deficits. HEENT: Face is symmetric. Pupils are equal and reactive. Extraocular movements are intact. NECK: Supple. No JVD. No thyromegaly. No submental, submandibular, pre- /postauricular, occipital or supraclavicular lymphadenopathy. CHEST: Normal chest expansion. No Telemetry. LUNGS: Absence of any rales, rhonchi or any wheezing. CARDIOVASCULAR: Regular. S1 and S2 normal. No appreciable rubs, murmurs or gallops. ABDOMEN: Soft, nontender, and nondistended. There is no rebound, voluntary gu arding, or rigidity. : Deferred. No Scales. EXTREMITIES: Non-edematous and not cyanotic. No clubbing. Good capillary refill. SKIN: No skin breakdown. Vital Signs (last 8hr) Date Time Temp Pulse Resp B/P (MAP) Pulse Ox O2 Delivery O2 Flow Rate FiO2 12/20/24 07:37 97.9 44 18 149/67 95 Room Air 12/20/24 03:51 97.7 50 19 161/67 97 Room Air LABS: Laboratory: Test 12/20/24 10:28 12/20/24 06:15 12/20/24 05:26 12/19/24 07:43 Range/Units Whole Blood Glucose 115 H 70-110 MG/DL White Blood Count 15.9 H 4.8-10.8 K/uL Red Blood Count 3.33 L 4.00-5.50 MIL/uL Hemoglobin 10.0 L 12.0-16.0 g/dL Hematocrit 32.2 L 36-48 % Mean Corpuscular Volume 96.7 79-99 fL Mean Corpuscular Hemoglobin 30.0 27.0-33.0 pg Mean Corpuscular Hemoglobin Concent 31.1 L 32.0-36.0 g/dL Red Cell Distribution Width 13.2 11.0-15.5 % Platelet Count 216 130-400 K/uL Mean Platelet Volume 11.8 H 7.5-10.5 fL Immature Granulocyte % (Auto) 1.6 H 0-1 % Neutrophils (%) (Auto) 87.4 H 40.0-77.0 % Lymphocytes (%) (Auto) 8.1 L 21.0-51.0 % Monocytes (%) (Auto) 2.7 L 3.0-13.0 % Eosinophils (%) (Auto) 0.0 0.0-8.0 % Basophils (%) (Auto) 0.2 0.0-5.0 % Neutrophils # (Auto) 13.9 H 1.8-7.7 K/uL Lymphocytes # (Auto) 1.3 1.0-4.8 K/uL Monocytes # (Auto) 0.4 0.1-1.0 K/uL Eosinophils # (Auto) 0.00 0.00-0.70 K/uL Basophils # (Auto) 0.03 0.00-0.20 K/uL Absolute Immature Granulocyte (auto 0.25 0-1 K/uL Nucleated Red Blood Cells 0.0 0.0-0.19 % White Cell Morphology Comment See comments Sodium Level 143 136-145 mmol/L Potassium Level 3.9 3.5-5.1 mmol/L Chloride Level 110 101-111 mmol/L Carbon Dioxide Level 21 21-32 mmol/L Blood Urea Nitrogen 19 H 7-18 mg/dL Creatinine 0.6 0.5-1.0 mg/dL Glomerular Filtration Rate Calc 94 >90 mL/min Random Glucose 146 H 70-105 mg/dL Total Calcium 9.1 8.5-10.1 mg/dL Bedside Glucose Comment Notified Nurse Lactic Acid Level 1.3 0.8-2.5 mmol/L Test 12/19/24 03:12 12/18/24 21:37 12/18/24 19:56 12/18/24 16:46 Range/Units Phosphorus Level 3.3 2.5-4.9 mg/dL Magnesium Level 2.00 1.80-2.40 mg/dL Influenza Type A Antigen Negative For Type A NEGATIVE Influenza Type B Antigen Negative For Type B NEGATIVE SARS-CoV-2, RNA, NAAT NEGATIVE SARS CoV-2 NEGATIVE Group A Streptococcus Rapid negative NEGATIVE B-Type Natriuretic Peptide 74 0-100 pg/mL Procalcitonin < 0.05 L 0.05-0.5 ng/mL Urine Color YELLOW YELLOW Urine Appearance CLOUDY H CLEAR Urine pH 5.5 5.0-8.0 Urine Specific [place] 1.021 1.001-1.031 Urine Protein 30 H NEGATIVE mg/dL Urine Glucose (UA) NEGATIVE NEGATIVE mg/dL Urine Ketones NEGATIVE NEGATIVE mg/dL Urine Occult Blood NEGATIVE NEGATIVE Urine Nitrate 1+ H NEGATIVE Urine Bilirubin NEGATIVE NEGATIVE mg/dL Urine Urobilinogen 0.2 0.2-1.0 mg/dL Urine Leukocyte Esterase 25 H NEGATIVE Coco/uL Urine RBC 0-1 0-1 /HPF Urine WBC 6-10 H 0-1 /HPF Urine Squamous Epithelial Cells FEW 0-2 /HPF Urine Bacteria MOD None Seen /HPF Urine Hyaline Casts 6-10 H 0-1 /LPF /LPF Test 12/18/24 15:44 Range/Units Troponin I High Sensitivity 9 4-50 ng/L Current Medications Medications (Trade) Dose Ordered Sig/Keyla Route PRN Reason Start Time Stop Time Status Last Admin Dose Admin Acetaminophen (TYLenol 325MG TAB) 650 mg Q6H PRN PO TEMPERATURE GREATER THAN 101.5 12/18/24 19:30 01/17/25 19:29 12/19/24 04:39 650 MG Albuterol (DUOneb) 1 UDVIAL [id number] IH 12/19/24 00:00 01/18/25 00:00 12/19/24 23:35 1 UDVIAL Albuterol Sulfate (Proventil 0.083% 2.5mg/3ml) 5 mg ONCE STAT IH 12/18/24 14:28 12/18/24 14:31 DC 12/18/24 15:35 5 MG Azithromycin 250 ml @ 250 mls/hr ONCE STAT IVPB 12/18/24 17:46 12/18/24 18:45 DC 12/18/24 18:39 250 MLS/HR Bisacodyl (DulcoLAX 5MG TAB) 5 mg BID PRN PO as needed 12/20/24 10:30 01/19/25 10:29 Citalopram Hydrobromide (CeleXA 20MG TAB) 40 mg DAILY PO 12/20/24 09:00 01/19/25 08:59 12/20/24 04:32 40 MG Enoxaparin Sodium (Lovenox) 40 mg DAILY SQ 12/19/24 09:00 01/18/25 08:59 12/20/24 10:03 40 MG Famotidine (Pepcid 20mg Tab) 20 mg DAILY PO 12/19/24 09:00 01/18/25 08:59 12/20/24 10:02 20 MG Guaifenesin/ Dextromethorphan (RobiTUSSin DM 200/20MG 10ML) 10 ml Q6H PRN PO COUGH 12/19/24 18:00 01/18/25 17:59 Hydralazine HCl (APRESOLine 20MG INJ) 10 mg Q6H PRN IV For:SBP above 160;DBP above 90 12/18/24 19:30 01/17/25 19:29 Levofloxacin (LEvaquIN 500MG TAB) 250 mg Q24H PO 12/19/24 22:00 12/29/24 21:59 Hold 12/19/24 22:00 250 MG Levofloxacin/ Dextrose 100 ml @ 100 mls/hr Q24H IV 12/18/24 19:30 12/19/24 21:49 DC 12/18/24 20:07 100 MLS/HR Levofloxacin/ Dextrose (LEvaquIN 750 MG/ D5W 150 ML) 750 mg ONCE IV 12/19/24 18:00 12/19/24 17:58 DC Levofloxacin/ Dextrose (LEvaquIN 750 MG/ D5W 150 ML) 750 mg Q24H IV 12/19/24 18:00 12/19/24 18:01 DC Losartan Potassium (CozAAR 100MG TAB) 100 mg HS PO 12/20/24 21:00 01/19/25 20:59 Methylprednisolone Sodium Succinate (Solu-medROL 40MG) 40 mg Q8H IVP 12/18/24 23:30 01/17/25 23:29 12/20/24 04:31 40 MG Morphine Sulfate (morPHINE 2MG SYG) 2 mg Q4H PRN IVP SEVERE PAIN (7-10) 12/19/24 00:30 12/26/24 00:29 12/20/24 06:27 2 MG Morphine Sulfate (morPHINE 4MG SYG) 2 mg Q4H PRN IVP SEVERE PAIN (7-10) 12/18/24 19:30 12/19/24 00:22 DC Ondansetron HCl (zoFRAN 4MG INJ) 4 mg Q6H PRN IV NAUSEA/VOMITING 12/18/24 19:30 01/17/25 19:29 Potassium Chloride 100 ml @ 100 mls/hr AD PRN IV POTASSIUM PROTOCOL 12/18/24 19:30 01/17/25 19:29 Potassium Chloride (K-Dur/Klor-Con 20meq) 20 meq AD PRN PO POTASSIUM PROTOCOL 12/18/24 19:30 01/17/25 19:29 12/18/24 22:29 20 MEQ Potassium Chloride (KCl 10% Elixir 20meq/15ml) 20 meq AD PRN PO POTASSIUM PROTOCOL 12/18/24 19:30 01/17/25 19:29 Simvastatin (zoCOR) 40 mg HS PO 12/20/24 21:00 01/19/25 20:59 Sodium Chloride 1,000 ml @ 100 mls/hr Q10H IV 12/19/24 09:30 01/18/25 09:29 12/19/24 23:34 100 MLS/HR Trimethoprim/ Sulfamethoxazole / Sodium Chloride 100 ml @ 100 mls/hr AD IV 12/20/24 14:00 12/30/24 13:59 [facility] RADIOLOGY: [place] [address] IMAGING REPORT Signed PATIENT: ROSI COTTON MR#: [id number] : 1950 SEX: F AGE: 74 LOCATION: [facility] ORDER 1430 STATUS: REG ER REPORT#: [id number] SERVICE 1428 REASON: SOB/COUGH TWO WEEKS ORDERING PHYSICIAN: BREANA MCCONNELL NP PROCEDURE: CXR1VW - CHEST 1VW PORTABLE CHEST RADIOGRAPH INDICATION: SOB/COUGH TWO WEEKS COMPARISON: None FINDINGS: Heart size is normal. Mild calcific plaque is present along the aortic arch steven. The pulmonary vascularity and dagmar appear normal. No abnormal pulmonary parenchymal opacity or consolidation identified. No significant pleural effusion noted. No pneumothorax detected. IMPRESSION: No radiographic evidence for any acute cardiopulmonary process. DICTATED BY: EDDA IGNACIO MD DATE: 12/18/241616 ELECTRONICALLY SIGNED BY: EDDA IGNACIO MD DATE: 12/18/241618 [place] [id number] [place] [address] [id number] IMAGING REPORT Signed PATIENT: ROSI COTTON MR#: [id number] : 1950 SEX: F AGE: 74 LOCATION: [facility] ORDER 56 STATUS: ADM IN REPORT#: [id number] SERVICE REASON: Post COVID Acute respiratory failure, SOB ORDERING PHYSICIAN: ALVARO IGNACIO MD PROCEDURE: CHEST W - CT CHEST W/CONTRAST CT CHEST W/CONTRAST HISTORY: Acute respiratory failure COMPARISON: None TECHNIQUE: Multiple sequential axial images of the chest were obtained from the thoracic inlet through upper abdomen. Patient was not given contrast through intravenous route. FINDINGS: There are right lower lobe pulmonary infiltrates. Mild interstitial fibrotic changes are seen. No pleural effusion or pericardial effusion is seen. There is no evidence of pneumothorax. There are normal size mediastinal and hilar lymph nodes. The heart is not enlarged. Degenerative changes of the thoracolumbar spine are present. There is no evidence of adrenal nodule. IMPRESSION: 1. Right lower lobe pulmonary infiltrates. Mild interstitial fibrotic changes. CT was performed with one or more following dose reduction techniques: automated exposure control, adjustment of the mA and kv according to patient's size, or use of a iterative reconstruction technique. DICTATED BY: ANDREI OCX MD DATE: 12/19/241723 ELECTRONICALLY SIGNED BY: ANDREI COX MD DATE: 12/19/241727 [facility] [address] [place] [address] [id number] IMAGING REPORT Signed PATIENT: ROSI COTTON MR#: [id number] : 1950 SEX: F AGE: 74 LOCATION: [facility] ORDER 0 STATUS: ADM IN REPORT#: [id number] SERVICE REASON: severe ruq abdominal pain ORDERING PHYSICIAN: ALVARO IGNACIO MD PROCEDURE: ABD PEL WO - CT ABDOMEN/PELVIS W/O CONTRAST CT ABDOMEN/PELVIS W/O CONTRAST HISTORY: Abdominal pain COMPARISON: None TECHNIQUE: Multiple sequential axial images of the abdomen and pelvis were obtained from the dome of the diaphragm through symphysis pubis. Patient was not given contrast through intravenous route. Oral contrast was not given. FINDINGS: No pleural effusion is seen bilaterally. There is no evidence of parenchymal disease or pulmonary nodule of the visualized lower lungs. Degenerative changes of the thoracolumbar spine are present. The heart is not enlarged. Gallstones and sludge material are seen in the gallbladder. There is large right renal cyst measuring 8.4 x 7.4 cm. There is diverticulosis. The liver, spleen, adrenal glands and pancreas are unremarkable. There is no evidence of hydronephrosis bilaterally. No evidence of renal stone is seen. Fecal material is seen in the colon. There are normal size retroperitoneal and mesenteric lymph nodes. No ascites is seen. Atherosclerotic changes are present. Appendix and uterus are not visualized. Pelvic sidewalls are symmetric bilaterally. Bladder is poorly distended. Contrast is seen in the urinary collecting system. IMPRESSION: 1. Diverticulosis. Fecal material is seen in the colon. CT was performed with one or more following dose reduction techniques: automated exposure control, adjustment of the mA and kv according to patient's size, or use of a iterative reconstruction technique. DICTATED BY: ANDREI COX MD DATE: 12/20/24 0957 ELECTRONICALLY SIGNED BY: ANDREI COX MD DATE: 12/20/24 1011 RUN DATE: 12/20/24 [facility] PAGE 1 RUN TIME: 0153 [id number] [place] [id number] Department of Laboratories CLIA # [id number] Fitness Plan Coordinator: Jareth Ventura DO Specimen Report PATIENT: ROSI COTTON ACCT: [id number] LOC: [facility] U: [id number] AGE/SX: 74/F ROOM: 428 RE12/18/[address]: LALI FARRAR MD : 1950 BED: 1 DIS: STATUS: ADM IN TLOC: SPEC: [id number] ABY: 12/18/24-1599 STATUS: RES REQ: [id number] RECD: 12/18/24-[address]: BREANA MCCONNELL NP SOURCE: BLOOD ENTR: 12/18/24-[address]: JOEY WEI MD SPDESC: ORDERED: BLOOD CULTURE COMMENTS: What is the Source? BLOOD Procedure Result [place] Date-Time - BLOOD CULT Preliminary 12/20/24-1633 NO GROWTH AFTER 48 HOURS RUN DATE: 12/20/24 [facility] [address] 1 RUN TIME: 1885 [address] [place] [address], [address] of [place] CLIA # [id number] F[employer] Plan Coordinator: Jareth Ventura DO Specimen Report PATIENT: ROSI COTTON ACCT: [id number] LOC: 4D U: [id number] AGE/SX: 74/F ROOM: [facility] RE12/18/[address]: LALI FARRAR MD : 1950 BED: 1 DIS: STATUS: ADM IN TLOC: SPEC: [id number] ABY: 12/18/24-1645 STATUS: COMP REQ: [id number] RECD: 12/19/[address] [facility] [address]: BREANA MCCONNELL NP SOURCE: [facility] [place], [place] ENTR: 12/19/[address] [facility] [address]: SELF,REFERRAL [facility]: [facility] TAMIKA JOEY LOPEZ MD ORDERED: AERO ID & SENS Procedure Result [place] Date-Time AEROBIC ID & SENSITIVITIES Final 12/20/24 [facility] COLONY DESCRIPTION: DAY 1: COLONY COUNT: >100,000 CFU/ML GRAM NEGATIVE RODS IDENTIFICATION AND SENSITIVITY TO FOLLOW ESCHERICHIA COLI E COLI M.I.C. RX --------- ---- AMPICILLIN <=8 S AZTREONAM <=4 S CEFAZOLIN <=2 S CEFTAZIDIME/AVIBACTAM <=8 S GENTAMICIN <=2 S LEVOFLOXACIN <=0.5 S NITROFURANTOIN <=32 S MEROPENEM <=1 S PIPERACILLIN/TAZOBACTAM <=8 S TRIMETHOPRIM/SUFLAMETHOXAZOLE <=2/38 S @ [facility] Test Performed at: [facility] [address], [place], [place] Medical Local Government Legislator: Aubrey Templeton D.O. END OF REPORT ASSESSMENT: Sepsis secondary to Urinary tract infection, Gram negative rods, POA Hypokalemia, resolved POA Acute respiratory failure requiring supplemental oxygen, improving POA Possible post viral pneumonia Anemia Elevated Lactic acid, resolved Cholelithiasis Right renal cyst measuring 8.4 x 7.4 cm, accidental finding per CT scan 12/20/2024 Sinus bradycardia with PVCs per EKG 12/20/2024 LBBB Diverticulosis Hypertension Hyperlipidemia PLAN: The patient remains admitted on the medical surgical floor. Sepsis secondary to Urinary tract infection, Gram negative rods, POA * Discontinue Levofloxacin and start with Bactrim 800/160 mg IV Q 24 daily. * Continue with Maintenance fluids 0.9% Nacl 100 cc/hour. * Blood culture did not show any growth after 48 hours. * Urine culture showed >[id number] CFU, Gram negative rods, pansensitive Ecoli Acute respiratory failure requiring supplemental oxygen, improving POA Possible Post Viral Pneumonia * Deescalate Solu-Medrol to 10 mg IV Q12. * Supplemental oxygen as needed * DuoNebs every 6 hours. * Robitussin 10 ml Q6 PRN for cough * CT Chest with contrast showed right lower lobe pulmonary infiltrates and Mild interstitial fibrotic changes. Echocardiogram results are pending. Right renal cyst measuring 8.4 x 7.4 cm, accidental finding per CT scan 12/20/2024 * The results were discussed with the patient. She was extremely nervous with hearing about the findings. She will be requiring follow up with the Urologist outpatient for the further management of renal cyst. Sinus bradycardia with PVCs per EKG 12/20/2024 * Continue with telemetry monitoring. Avoid medications that causes bradycardia. As needed analgesia with morphine. Home medications were reconciled and resumed. Hydralazine 10 mg IV every 4 hours for systolic blood pressure greater than 160 mmHg PT, 6 minutes walk test tomorrow. GI prophylaxis, famotidine 20 mg by mouth once daily. DVT prophylaxis, Lovenox. AM Labs: CBC, BMP I have discussed the investigations and treatment course in the detail with the patient. She lives in [place] and does not have PCP here. She will be going to [place] in March and would like to follow up with the providers there. If the patient's condition continues to improve, we will discharge in 24 hours with oral antibiotics. Further orders per hospitalization course. ATTESTATION BY PHYSICIAN I have seen and examined the patient. I reviewed the documentation, medical decision making, and treatment plan as noted by the resident provider above. I agree with the findings and plan of care. Ranjan Bowden MD, MANALI MD Dec 20, 2024 10:36
[2024-12-20] MEDS ORDERED: BACTRIM 800MG/160MG 10ML VIAL 0 MG in 0.9%NACL 100ML 100 ML IV SCH (14:00)
[2024-12-20] MEDS: BACTRIM 800MG/160MG 10ML VIAL 320 MG in DEXTROSE 5%-WATER 500 ML IV SCH (14:07)
[2024-12-20] MEDS: Solu-medROL 40MG VIAL IVP SCH (14:07)
--- NOTE | 2024-12-20 17:07 | NUR ---
DCP CM SPOKE TO PT ASSESSMENT DONE. PATIENT IS INDEPENDENT PRIOR TO ADMISSION, LIVES AT HOME WITH HER SPOUSE. DENIES ANY EQUIPMENT/SERVICES. FEELS SAFE TO GO BACK HOME, SPOUSE ABLE TO ASSIST WITH TRANSPORTATION AND NEEDS NECESSARY. DCP HOME ONCE STABLE. CM TO CONTINUE TO FOLLOW UP. Addendum: 12/20/24 at 1708 by FRANCHESKA KIDD LVN CM Amended: Links added.
[2024-12-20] MEDS: LoSARTan 100 MG TABLET PO SCH (21:25)
[2024-12-20] MEDS: ZOLPidem TARTrate 5 MG TAB PO ONE (21:25)
[2024-12-20] MEDS: simVASTatin 20 MG TABLET PO SCH (21:26)
[2024-12-21] VITALS (7 sets, daily range): BP systolic 120–165; BP diastolic 52–82; PULSE 53–66; RESP 18–19; TEMP 97.6–98.6; O2SAT 95–96
[2024-12-21] MEDS: BACTRIM 800MG/160MG 10ML VIAL 320 MG in DEXTROSE 5%-WATER 500 ML IV SCH (02:13)
[2024-12-21 03:57] LABS: BASOPHILS # (AUTO) 0.02 K/uL (0.00-0.20); BASOPHILS % (AUTO) 0.1 % (0.0-5.0); HEMATOCRIT 28.6 % (36-48); IMMATURE GRANULOCYTE ABSOLUTE 0.44 K/uL (0-1); LYMPHOCYTES # (AUTO) 1.3 K/uL (1.0-4.8); LYMPHOCYTES % (AUTO) 8.9 % (21.0-51.0); MEAN CORPUSCULAR HEMOGLOBIN 29.7 pg (27.0-33.0); MEAN CORPUSCULAR HGB CONC 31.5 g/dL (32.0-36.0); MEAN CORPUSCULAR VOLUME 94.4 fL (79-99); MONOCYTES # (AUTO) 0.4 K/uL (0.1-1.0); MONOCYTES % (AUTO) 2.6 % (3.0-13.0); NEUTROPHILS # (AUTO) 12.6 K/uL (1.8-7.7); NEUTROPHILS % (AUTO) 85.4 % (40.0-77.0); PLATELET COUNT (AUTO) 220 K/uL (130-400); RED BLOOD CELL COUNT(AUTO) 3.03 MIL/uL (4.00-5.50); RED CELL DISTRIBUTION WIDTH 13.5 % (11.0-15.5); WHITE BLOOD COUNT (AUTO) 14.8 K/uL (4.8-10.8)
[2024-12-21 04:16] LABS: CREATININE 0.6 mg/dL (0.5-1.0); POTASSIUM 3.7 mmol/L (3.5-5.1)
--- NOTE | 2024-12-21 08:42 | HMCSR ---
APPROVED REPORT EXAM: Two-dimensional and M-mode echocardiogram with Doppler and color Doppler. INDICATION ICD: Acute respiratory failure, SOB 2D Dimensions RVDd3.8 cmLVEF(%)67.9 (>50%)LVED Vol(simp.)110.0 mL IVSd0.7 (0.7-1.1cm)FS(%)38 %LVES Vol(simp.)35.5 mL LVDd5.0 (3.8-5.6cm)LA (2D)3.7 (1.6-4.0cm)LVEF(%, simp.)68 % PWd0.9 (0.7-1.1cm)Ao Root(2D)2.7 (2.0-3.7cm)LA ESV INDEX (4CH)26.30 mL/m2 IVSs1.3 cmLVOT diam1.9 (1.8-2.4cm)LA ESV INDEX (2CH)40.20 mL/m2 LVDs3.1 (2.5-4.0cm)LA ESV INDEX (BP)35.30 mL/m2 PWs1.5 cm Deformation Strain Apical 422.0 % Apical 227.0 % Apical 326.0 % Global Slnoiv74.0 % M-Mode Dimensions EPSS0.6 cm LA (MM)4.0 (1.6-4.0cm) Ao Root(MM)2.7 (2.0-3.7cm) Aortic Valve AoV VTI0.5 mAo Mean GR6.0 mmHgLVOT VTI0.33 m JAYESH (VMAX)2.1 cm2AVA (VTI) 2.1 cm2 Mitral Valve MV E Wsrw091.7 cm/sDECEL Dymp628 ms MV A Vmax44.6 cm/sP 1/2 T90 ms E/A ratio2.8MVA (PHT)2.5 cm2 MR Max PG33 mmHg TDI E/E' Fpqhkc76.3E/E' Fovhhfb95.5 Medial E' Peak V5.30 cm/sLateral E' Peak V7.50 cm/s Pulmonary Valve PV Vmax1.0 m/sPI End Nasra. Yoni 96.4 cm/s PV Peak GR4.3 mmHg Tricuspid Valve TR Vmax2.7 m/s TR Peak GR29.8 mmHg Left Ventricle Left ventricular cavity size is normal. GLS -25% There is normal left ventricular wall thickness. LVE F is 65-70%. Indeterminate diastolic function. Right Ventricle The right ventricle is normal size. The right ventricular systolic function is normal. Moderator band is seen in the right ventricle. Atria The left atrium size is upper limits normal in size. The right atrium is mildly dilated. Aortic Valve The aortic valve is normal in structure and function. No aortic regurgitation is present. There is no aortic valvular stenosis. Mitral Valve Mitral valve leaflets open well. Mitral regurgitation is trace. There is no mitral valve stenosis. Tricuspid Valve The tricuspid valve is normal in structure and function. There is mild tricuspid valve regurgitation noted. Pulmonic Valve The pulmonary valve is normal in structure and function. There is trace pulmonic valvular regurgitati on. Great Vessels The aortic root is normal in size. IVC is dilated and collapses <50% with inspiration. Pericardium No pericardial effusion. Other Information Quality : GoodRhythm : Bradycardia Conclusion LVEF is 65-70%. Indeterminate diastolic function. Mild tricuspid valve regurgitation.
[2024-12-21] MEDS ORDERED: IpraTROPium 0.5 MG/2.5 ML INH IH PRN (14:00)
--- NOTE | 2024-12-21 14:33 | DS ---
Discharge Summary Hospital Course Summary: The patient is a 74-year-old female with a medical history of hypertension, hyperlipidemia, and anxiety disorder presented to the emergency department with chief complaints of shortness of breath that had been ongoing for one week. The patient's had sustained femur and hand fractures one month prior, and she expressed concerns about being exposed to a sick environment during his rehabilitation visits. Additionally, one week ago, while taking a shower, she experienced a sudden onset of shortness of breath. She performed a home COVID test, which returned positive, and subsequently completed a course of Paxlovid. However, her shortness of breath did not improve, leading her to seek care in the emergency department. Upon presentation, her heart rate was 96 beats per minute, and her respiratory rate was 22 breaths per minute, meeting the SIRS criteria. She was also noted to be in respiratory distress and was initiated on supplemental oxygen via nasal cannula, along with IV steroids and inhalers. Laboratory results showed potassium levels at 3, lactic acid at 2.7, and urinalysis revealed cloudy appearance, 1+ nitrate, small leukocyte esterase, and hyaline casts. She met the criteria for sepsis and was admitted for the management of sepsis secondary to a urinary tract infection and acute respiratory failure. CT abdomen pelvis was ordered, which showed Diverticulosis, gallstones with sludge material, large right renal cyst measuring 8.4 x 7.4 cm. Otherwise her vitals are stable Labs: WBC went up to 15.9 from 5.1 (Possibly secondary to IV steroids). The urine culture showed >100,000 CFU and the presence of gram-negative rods, Pansensitive ECOLI. . Due to episodes of bradycardia possibly secondary to vasovagal vs medication induced, we will DC Levofloxacin and start with Bactrim. Continue close monitoring under telemetry. Further assessment and a detailed plan are discussed below. She tolerated bactrim and desired to go home. She was advised to have an out patient sleep study and follow up with urology for the renal cyst. She was discharged in a stable condition. Assessment/Plan: ASSESSMENT: Sepsis secondary to Urinary tract infection, Gram negative rods, POA Hypokalemia, resolved POA Acute respiratory failure requiring supplemental oxygen, improving POA Possible post viral pneumonia Anemia Elevated Lactic acid, resolved Cholelithiasis Right renal cyst measuring 8.4 x 7.4 cm, accidental finding per CT scan 12/20/2024 Sinus bradycardia with PVCs per EKG 12/20/2024 LBBB Diverticulosis Hypertension Hyperlipidemia PLAN: The patient remains admitted on the medical surgical floor. Sepsis secondary to Urinary tract infection, Gram negative rods, POA * Discontinue Levofloxacin and start with Bactrim 800/160 mg IV Q 24 daily. * Continue with Maintenance fluids 0.9% Nacl 100 cc/hour. * Blood culture did not show any growth after 48 hours. * Urine culture showed >195331 CFU, Gram negative rods, pansensitive Ecoli Acute respiratory failure requiring supplemental oxygen, improving POA Possible Post Viral Pneumonia * Deescalate Solu-Medrol to 10 mg IV Q12. * Supplemental oxygen as needed * DuoNebs every 6 hours. * Robitussin 10 ml Q6 PRN for cough * CT Chest with contrast showed right lower lobe pulmonary infiltrates and Mild interstitial fibrotic changes. Echocardiogram results are pending. Right renal cyst measuring 8.4 x 7.4 cm, accidental finding per CT scan 12/20/2024 * The results were discussed with the patient. She was extremely nervous with hearing about the findings. She will be requiring follow up with the Urologist outpatient for the further management of renal cyst. Sinus bradycardia with PVCs per EKG 12/20/2024 * Continue with telemetry monitoring. Avoid medications that causes bradycardia. As needed analgesia with morphine. Home medications were reconciled and resumed. Hydralazine 10 mg IV every 4 hours for systolic blood pressure greater than 160 mmHg PT, 6 minutes walk test tomorrow. GI prophylaxis, famotidine 20 mg by mouth once daily. DVT prophylaxis, Lovenox. AM Labs: CBC, BMP I have discussed the investigations and treatment course in the detail with the patient. She lives in [place] and does not have PCP here. She will be going to [place] in March and would like to follow up with the providers there. If the patient's condition continues to improve, we will discharge in 24 hours with oral antibiotics. Further orders per hospitalization course. Home Medications: Reported Medications [vitamin d3] No Conflict Check, 1 CAP PO DAILY 12/18/24 Multivit-Min/Iron/FA/Vit K/Lut (Centrum Silver Women Tablet) 8 Mg Iron-400 Mcg- 50 Mcg-300 Mcg Tablet, 1 TAB PO DAILY for 30 Days, #30 TAB 0 Refills 12/18/24 Simvastatin (Simvastatin) 40 Mg Tablet, 1 TAB PO HS for 30 Days, #30 TAB 0 Refills 12/18/24 Escitalopram Oxalate (Escitalopram Oxalate) 20 Mg Tablet, 1 TAB PO DAILY for 30 Days, #30 TAB 0 Refills 12/18/24 Losartan Potassium (Losartan Potassium) 100 Mg Tablet, 1 TAB PO HS for 30 Days, #30 TAB 0 Refills 12/18/24 Time spent arranging discharge: 31-60 minutes LYDIA PINO MD Dec 21, 2024 14:33
--- NOTE | 2024-12-21 16:14 | NUR ---
DISCHARGE PATIENT HAS BEEN DISCHARGED HOME. PIV REMOVED. PRESSURE GAUZE AND TAPE APPLIED TO SITE. PATIENT VERBALIZES UNDERSTANDING OF DISCHARGE PAPERWORK. PRESCRIPTION FOR ORAL ANTIBIOTIC HAS BEEN PROVIDED TO PATIENT. PATIENT ALSO PROVIDED WITH INFORMATION TO FOLLOW UP WITH A UROLOGIST AND [facility] FOR [facility]EP STUDY. TELE MONITOR REMOVED. PENDING RIDE.
--- NOTE | 2024-12-21 17:15 | NUR ---
DISCHARGE PATIENT'S RIDE IS HERE. PATIENT WHEELED DOWN TO PRIVATE AUTOMOBILE, ACCOMPANIED BY PRIMARY NURSE.
== END 2024-12-21 17:08 | disposition home or self-care (01) | DRG 871 ==
LOC: EDH 14:07 → EDHIP 18:25 → 4DH 20:20
PROVIDERS: ADMIT Internal Medicine; ATTEND Internal Medicine
DX: A41.9 Sepsis, unspecified organism (principal); J12.9 Viral pneumonia, unspecified; J96.01 Acute respiratory failure with hypoxia; E87.20 Acidosis, unspecified; N39.0 Urinary tract infection, site not specified; E87.6 Hypokalemia; I10 Essential (primary) hypertension; D64.9 Anemia, unspecified; K80.20 Calculus of gallbladder without cholecystitis without obstruction; E78.00 Pure hypercholesterolemia, unspecified; Z20.822 Contact with and (suspected) exposure to COVID-19; N28.1 Cyst of kidney, acquired; K57.30 Diverticulosis of large intestine without perforation or abscess without bleeding; I49.3 Ventricular premature depolarization; E78.5 Hyperlipidemia, unspecified; I44.7 Left bundle-branch block, unspecified; F41.9 Anxiety disorder, unspecified; Z90.710 Acquired absence of both cervix and uterus; Z90.49 Acquired absence of other specified parts of digestive tract; Z88.0 Allergy status to penicillin; Z87.891 Personal history of nicotine dependence; Z86.16 Personal history of COVID-19; Z90.722 Acquired absence of ovaries, bilateral
CPT/HCPCS: 36415; 71045; 71260; 74176; 80048; 81001; 82948; 83605; 83735; 83880; 84100; 84145; 84484; 85025; 87040; 87086; 87186; 87635; 87804; 87880; 93005; 93306; 93356; 94640; 94664; 96365; 96375; 99285; G0378; J0456; J0696; J1650; J1956; J2270; J2919; J3490; J7060; Q9967